=== PATIENT | female | born 1955 | race Caucasian/White ===

== ENCOUNTER 2021-10-22 01:44 | Day surgery (SDC) | payer OTHER, SELFPAY ==
[2021-10-11 14:14] VITALS: BMI 30.9
--- NOTE | 2021-10-21 13:44 | WPDANESEPPF ---
Anes - Initial Pre Proc Eval Procedure: Operation Date: 10/22/21 08:30 Proposed Procedures p Colonoscopy - Hussein Oneill MD <Santhosh Tian DO - Last Filed: 10/22/21 09:38> Date/Time: 10/21/21 13:44 <Santhosh Tian DO - Last Filed: 10/22/21 09:38> Surgeon: Hussein Oneill MD <Santhosh Tian DO - Last Filed: 10/22/21 09:38> Pre Op Diagnosis: anemia <Santhosh Tian DO - Last Filed: 10/22/21 09:38> Patient Data Age: 65 Gender: F Height: 1.52 m Weight: 72 kg <Santhosh Tian DO - Last Filed: 10/22/21 09:38> Allergies Allergy/AdvReac Type Severity Reaction Status Date / Time choline fenofibrate Allergy Unknown chest pains Verified 10/22/21 07:43 [Trilipix] simvastatin Allergy Unknown Muscle pain Verified 10/22/21 07:43 pravastatin AdvReac Severe muscle Verified 10/22/21 07:43 aches <Santhosh Tian DO - Last Filed: 10/22/21 09:38> Home Medications Medication Instructions Recorded Confirmed Type albuterol sulfate 90 mcg/actuation 2 puff INHALATION .COMPLEX #8.5 gm 02/10/21 10/22/21 Rx aerosol inhaler budesonide-formoterol HFA 160 2 puff INHALATION Q12H #10.2 g 02/10/21 10/22/21 Rx mcg-4.5 mcg/actuation aerosol inhaler irbesartan 150 1 tablet PO DAILY #90 tablet 02/10/21 10/22/21 Rx mg-hydrochlorothiazide 12.5 mg tablet metformin 500 mg tablet,extended 1,000 mg PO BID PRN #360 tablet 02/10/21 10/22/21 Rx release 24 hr glimepiride 2 mg tablet See Rx Instructions .ROUTE 05/31/21 10/22/21 Rx .COMPLEX #90 tablet magnesium 250 mg tablet 250 mg PO DAILY tablet 08/24/21 10/22/21 History ezetimibe 10 mg tablet 10 mg PO DAILY #30 tablet 10/06/21 10/22/21 Rx Aspirin Low Dose 81 mg PO DAILY 10/11/21 10/22/21 History omeprazole 20 mg PO DAILY 10/11/21 10/22/21 History <Santhosh Tian DO - Last Filed: 10/22/21 09:38> Patient hx anesthesia problems: none <Rony Ascencio CRNA - Last Filed: 10/22/21 08:11> Family hx anesthesia problems: none <Rony Ascencio CRNA - Last Filed: 10/22/21 08:11> Results Review: All pre-operative results and documents have been reviewed as part of the pre-operative evaluation. <Santhosh Tian DO - Last Filed: 10/22/21 09:38> [facility] Past Medical History Medical History: Medical History (Updated 10/22/21 @ 08:02 by Hussein Oneill MD) DM w/o complication type II, uncontrolled Essential (primary) hypertension Moderate persistent asthma, uncomplicated Type 2 diabetes mellitus without complications <Santhosh Tian DO - Last Filed: 10/22/21 09:38> Surgical History Surgical History: Surgical History H/O: hysterectomy <Santhosh Tian DO - Last Filed: 10/22/21 09:38> Family History Family History: Family History Mother Diabetes mellitus Other No family history of cardiovascular disease No family history of hypertension <Santhosh Tian DO - Last Filed: 10/22/21 09:38> Social History Social History: Social History Alcohol intake: current Living arrangements: with family Spiritual care concerns: No <Santhosh Tian DO - Last Filed: 10/22/21 09:38> Anes - Eval Final PreProcedure Day of Procedure 10/21/21 13:44 <Santhosh Tian DO - Last Filed: 10/22/21 09:38> Patient weight: obese <Santhosh Tian DO - Last Filed: 10/22/21 09:38> Heart: regular rate and rhythm <Santhosh Tian DO - Last Filed: 10/22/21 09:38> Lungs: clear to auscultation and normal air movement <Santhosh Tian DO - Last Filed: 10/22/21 09:38> Airway: Mallampati scale class II <Santhosh Tian DO - Last Filed: 10/22/21 09:38> Neurological: alert and oriented <St
[2021-10-22 07:37] VITALS: BP 155/78; PULSE 108; RESP 16; TEMP 36.4; O2SAT 98; BMI 29.9
[2021-10-22] MEDS: LACTATED RINGERS 1,000 ML 150 ML IV CONT (07:57)
[2021-10-22 07:59] LABS: Glucose Point of Care 183 mg/dl (65-105)
--- NOTE | 2021-10-22 08:00 | WPDGICN ---
Assessment and Plan Assessment and plan (1) Anemia, unspecified: Code(s): D64.9 - Anemia, unspecified Status: Acute Assessment and Plan: Mild normochromic normocytic anemia reported. May be nonspecific. Plan is for colonoscopy to exclude organic disease. (2) Encounter for screening colonoscopy: Code(s): Z12.11 - Encounter for screening for malignant neoplasm of colon Status: Acute Assessment and Plan: Screening colonoscopy advised because of patient's age. She has never had a previous colonoscopy. Family history suggest may be years sister had had colon polyps. GI Consult Note Consult date/time: 10/22/21 08:00 HPI: Jayashree Cordero is a 65 year old female Presents for a screening colonoscopy. Patient reports recently found to have a mild normochromic normocytic anemia. She has had no evidence for bleeding. No nose bleeds no blood in her urine no bruising. No blood in her stools reported. Patient denies abdominal pain. She states her weight appetite are normal. She has never had a previous colonoscopy. Family history is noncontributory. Review of Systems Review of Systems: All systems reviewed & are unremarkable except as noted in HPI and below PMFSH Past Medical History Medical History (Updated 10/22/21 @ 08:02 by Hussein Oneill MD) DM w/o complication type II, uncontrolled Essential (primary) hypertension Moderate persistent asthma, uncomplicated Type 2 diabetes mellitus without complications Surgical History Surgical History H/O: hysterectomy Family History Family History Mother Diabetes mellitus Other No family history of cardiovascular disease No family history of hypertension Social History Social History Alcohol intake: current Living arrangements: with family Spiritual care concerns: No Meds Home Medications and Allergies Home Medications Medication Instructions Recorded Confirmed Type albuterol sulfate 90 mcg/actuation 2 puff INHALATION .COMPLEX #8.5 gm 02/10/21 10/22/21 Rx aerosol inhaler budesonide-formoterol HFA 160 2 puff INHALATION Q12H #10.2 g 02/10/21 10/22/21 Rx mcg-4.5 mcg/actuation aerosol inhaler irbesartan 150 1 tablet PO DAILY #90 tablet 02/10/21 10/22/21 Rx mg-hydrochlorothiazide 12.5 mg tablet metformin 500 mg tablet,extended 1,000 mg PO BID PRN #360 tablet 02/10/21 10/22/21 Rx release 24 hr glimepiride 2 mg tablet See Rx Instructions .ROUTE 05/31/21 10/22/21 Rx .COMPLEX #90 tablet magnesium 250 mg tablet 250 mg PO DAILY tablet 08/24/21 10/22/21 History ezetimibe 10 mg tablet 10 mg PO DAILY #30 tablet 10/06/21 10/22/21 Rx Aspirin Low Dose 81 mg PO DAILY 10/11/21 10/22/21 History omeprazole 20 mg PO DAILY 10/11/21 10/22/21 History Allergies Allergy/AdvReac Type Severity Reaction Status Date / Time choline fenofibrate Allergy Unknown chest pains Verified 10/22/21 07:43 [Trilipix] simvastatin Allergy Unknown Muscle pain Verified 10/22/21 07:43 pravastatin AdvReac Severe muscle Verified 10/22/21 07:43 aches Vital Signs Vital Signs - 24 hr 10/22/21 07:37 Temperature 97.5 F L Pulse Rate 108 H Respiratory Rate 16 Blood Pressure 155/78 H Pulse Oximetry 98 Exam Narrative: Physical exam reveals patient to be alert. Vital signs stable. HEENT exam is unremarkable. Patient is anicteric. Lungs are clear to auscultation and percussion. Heart is without murmur or extra sounds. Abdomen bowel sounds are present soft nontender with no hepatosplenomegaly. Digital external rectal exam is normal.
[2021-10-22 08:57] VITALS: BP 100/61; PULSE 72; RESP 22; O2SAT 98
[2021-10-22 09:07] VITALS: BP 114/69; PULSE 73; RESP 22; O2SAT 98
[2021-10-22 09:17] VITALS: BP 130/88; PULSE 85; RESP 12; O2SAT 98
== END 2021-10-22 09:30 | disposition home or self-care (01) ==
PROVIDERS: PCP Family Medicine; Visit Provider Internal Medicine Gastroenterology
PROC: 0DJD8ZZ Inspection of Lower Intestinal Tract, Via Natural or Artificial Opening Endoscopic (ICD-10-PCS; CPT 45378; principal; 2021-10-22 08:30)
DX: Z12.11 Encounter for screening for malignant neoplasm of colon (principal); K64.8 Other hemorrhoids; D64.9 Anemia, unspecified; I10 Essential (primary) hypertension; E11.9 Type 2 diabetes mellitus without complications; J45.30 Mild persistent asthma, uncomplicated; Z79.51 Long term (current) use of inhaled steroids; Z79.84 Long term (current) use of oral hypoglycemic drugs
CPT/HCPCS: 45378; 82948; J2001; J2704; J7120

== ENCOUNTER → 2021-12-11 07:56 | Outpatient (CLI) | payer OTHER, SELFPAY ==
--- NOTE | ~2021-12-11 | MM_ITS ---
EXAMINATION: MM screening [facility] BI w [facility] HISTORY: Screening mammogram TECHNIQUE: Craniocaudal and mediolateral oblique 3-D tomosynthesis images were obtained and synthetic 2-D images were generated. CAD analysis was submitted and interpreted. COMPARISON: 07/06/2019, 12/27/2016 BREAST PARENCHYMAL COMPOSITION: There are scattered areas of fibroglandular density. FINDINGS: There is no evidence of suspicious mass, calcification, or architectural distortion to sugg est malignancy in either breast. There has been no suspicious interval change. IMPRESSION: 1. No mammographic evidence of malignancy. 2. Recommend routine screening mammography in one year. BI-RADS Category 1: Negative Reviewed, dictated and finalized at location A.
--- NOTE | ~2021-12-11 | DEXA_ITS ---
Bone Density Report Name: LONA DIXON Age: 66 Sex: Female Ethnicity: White Date of : 1955 Indication: postmenopausal; screening for osteoporosis; asthma or emphysema; hysterectomy; Referring Provider: EDGARD OLIVARES Study: Bone densitometry was performed. Exam Date: December 11, 2021 Accession number: [id number] Bone Density: Region BMD T-score Z-score Classification AP Spine (L1-L4) 0.924 -1.1 0.6 Osteopenia Femoral Neck (Left) 0.700 -1.3 0.2 Osteopenia Total Hip (Left) 0.879 -0.5 0.7 Normal Femoral Neck (Right) 0.684 -1.5 0.0 Osteopenia Total Hip (Right) 0.915 -0.2 1.0 Normal Total Hip Mean 0.897 -0.4 0.9 Normal World Health Organization criteria for BMD impression classify patients as: Normal (T-score at or above -1.0), Osteopenia (T-score between -1.0 and -2.5), or Osteoporosis (T-score at or below -2.5). 10-year Fracture Risk(1): Major Osteoporotic Fracture 8.7% Hip Fracture 0.9% Reported Risk Factors: [place] (), Neck BMD=0.684, BMI=29.5 (1) FRAX(R) Version 3.08. Fracture probability calculated for an untreated patient. Fracture probability may be lower if the patient has received treatment. Previous Exams: Region Exam Age BMD T-score BMD Change BMD Change Date g/cm2 vs Baseline vs Previous AP Spine(L1-L4) 12/11/2021 66 0.924 -1.1 -0.068* -0.029* 07/04/2015 59 0.953 -0.9 -0.039* -0.027* 08/25/2012 56 0.980 -0.6 -0.013 0.000 04/16/2010 54 0.980 -0.6 -0.013 -0.013 09/26/2008 52 0.992 -0.5 Total Hip(Left) 12/11/2021 66 0.879 -0.5 -0.055* -0.021 07/04/2015 59 0.900 -0.3 -0.033* -0.035* 08/25/2012 56 0.935 -0.1 0.002 0.037* 04/16/2010 54 0.898 -0.4 -0.035* -0.035* 09/26/2008 52 0.933 -0.1 Total Hip(Right) 12/11/2021 66 0.915 -0.2 -0.015 -0.011 07/04/2015 59 0.926 -0.1 -0.004 -0.054* 08/25/2012 56 0.980 0.3 0.050* 0.082* 04/16/2010 54 0.897 -0.4 -0.033* -0.033* 09/26/2008 52 0.930 -0.1 *Denotes significance at 95% confidence level, LSC for AP Spine = 0.022 g/cm2, LSC for Total Hip = 0.027 g/cm2 Clinical Information Provided by Patient: Has used the following medications: Vitamin D, Calcium Has the following medical conditions: Asthma or Emphysema, Hysterectomy Patient maximum height was 61
== END ==
PROVIDERS: PCP Family Medicine; Visit Provider Family Medicine
DX: Z12.31 Encounter for screening mammogram for malignant neoplasm of breast (principal); Z13.820 Encounter for screening for osteoporosis; Z78.0 Asymptomatic menopausal state; M85.88 Other specified disorders of bone density and structure, other site; M85.852 Other specified disorders of bone density and structure, left thigh; M85.851 Other specified disorders of bone density and structure, right thigh
CPT/HCPCS: 77063; 77067; 77080

== ENCOUNTER 2022-06-29 09:31 | Outpatient (CLI) | payer OTHER, SELFPAY ==
--- NOTE | 2022-06-29 09:52 | EST_ITS ---
Patient Info Name: Jayashree Cordero Age: 66 years : 1955 Gender: Female Ht: 61 in Wt: 160 lbs BSA: 1.79 m2 HR: 78 bpm BP: 154 / 83 mmHg Heart Rhythm: Sinus Rhythm Technical Quality: Good Exam Date: 06/29/2022 10:09 AM Exam Location: [facility] Patient Status: Outpatient Admit Date: 06/29/2022 Staff Ordering Physician: He Pedraza PA-C Safety Officer: Colette Green RDCS Attending Provider: DR. BOWIE Referring Physician: Keila OBRIEN; Exam Type: CA stress echo Study Info Indications R07.89 - Other chest pain Treadmill exercise stress echocardiogram is performed. Summary 1. 1. Negative Jax exercise stress test for ischemic ST changes by ECG criteria. 2. 2. Reduced functional capacity, achieving 4.7 METs of workload. 3. 3. Baseline hypertension. 4. 4. Rapid HR response to exercise. 5. 5. Appropriate HR recovery at 1 minute post exercise. 6. 6. Negative stress echocardiogram for ischemia by wall motion analysis. 7. 7. Patient informed of the above results. Stress Echo Findings Left Ventricle Appropriate increase in LV endocardial thickening with systole. Appropriate augmentation of contractility with systole. No wall motion abnormality. Left Ventricle Normal LV systolic function, no wall motion abnormality. Protocol: Jax Stress ECG Details Stage: REST Duration (min): 2 min : 25 sec Speed (mph): 0.0 Grade (%): 0 HR (bpm): 79 SBP (mmHg): 154 DBP (mmHg): 83 METS: --- Stage: REST Duration (min): 27 min : 46 sec Speed (mph): 0.0 Grade (%): 0 HR (bpm): 86 SBP (mmHg): 154 DBP (mmHg): 83 METS: --- Stage: STAGE 1 Duration (min): 1 min : 0 sec Speed (mph): 1.7 Grade (%): 10 HR (bpm): 118 SBP (mmHg): 154 DBP (mmHg): 83 METS: --- Stage: STAGE 1 Duration (min): 2 min : 0 sec Speed (mph): 1.7 Grade (%): 10 HR (bpm): 142 SBP (mmHg): 154 DBP (mmHg): 83 METS: --- Stage: STAGE 1 Duration (min): 3 min : 0 sec Speed (mph): 1.7 Grade (%): 10 HR (bpm): 150 SBP (mmHg): 198 DBP (mmHg): 86 METS: --- Stage: STAGE 2 Duration (min): 0 min : 8 sec Speed (mph): 0.0 Grade (%): 0 HR (bpm): 150 SBP (mmHg): 198 DBP (mmHg): 86 METS: --- Stage: RECOVERY Duration (min): 0 min : 51 sec Speed (mph): 0.0 Grade (%): 0 HR (bpm): 129 SBP (mmHg): 198 DBP (mmHg): 86 METS: --- Stage: RECOVERY Duration (min): 1 min : 51 sec Speed (mph): 0.0 Grade (%): 0 HR (bpm): 100 SBP (mmHg): 198 DBP (mmHg): 86 METS: --- Stage: RECOVERY Duration (min): 2 min : 51 sec Speed (mph): 0.0 Grade (%): 0 HR (bpm): 95 SBP (mmHg): 198 DBP (mmHg): 86 METS: --- Stage: RECOVERY Duration (min): 3 min : 51 sec Speed (mph): 0.0 Grade (%): 0 HR (bpm): 83 SBP (mmHg): 198 DBP (mmHg): 86 METS: --- Stage: RECOVERY Duration (min): 4 min : 5
== END 2022-06-29 09:32 | disposition home or self-care (01) ==
PROVIDERS: PCP Emergency Medicine; Visit Provider Physician Assistant
DX: R07.9 Chest pain, unspecified (principal); E11.69 Type 2 diabetes mellitus with other specified complication; E78.2 Mixed hyperlipidemia
CPT/HCPCS: 93351

== ENCOUNTER → 2023-05-12 15:56 | Outpatient (CLI) | payer OTHER, SELFPAY ==
--- NOTE | ~2023-05-12 | XR_ITS ---
EXAM: XR knee RT 3V DATE: 05/12/2023 16:21 HISTORY: M79.669 - Pain in unspecified lower leg . COMPARISON: None available. FINDINGS: Normal mineralization. No fracture or dislocation. No lytic or blastic lesion. Mild tricom partmental osteophytosis. Quadriceps enthesopathy. No erosion or periosteal change. Vascular calcific ations. IMPRESSION: Mild tricompartmental right knee osteoarthritis. Reviewed, dictated and finalized at location K.
== END ==
PROVIDERS: PCP Emergency Medicine; Visit Provider Nurse Practitioner Family
DX: M79.669 Pain in unspecified lower leg (principal); M17.11 Unilateral primary osteoarthritis, right knee
CPT/HCPCS: 73562

== ENCOUNTER 2023-06-09 01:11 | Day surgery (SDC) | payer OTHER, SELFPAY ==
[2023-05-24 13:14] VITALS: BMI 26.9
[2023-06-09 08:45] VITALS: BP 139/72; PULSE 84; RESP 20; TEMP 36.3; O2SAT 100; BMI 27.1
[2023-06-09] MEDS: LACTATED RINGERS 1,000 ML 150 ML IV CONT (08:47)
[2023-06-09 09:03] LABS: Glucose Point of Care 118 mg/dl (65-105)
--- NOTE | 2023-06-09 09:03 | WPDANESEPPF ---
Anes - Initial Pre Proc Eval Procedure: Operation Date: 06/09/23 09:30 Proposed Procedures p Esophagogastroduodenoscopy - Hussein Oneill MD Date/Time: 06/09/23 09:03 Surgeon: Hussein Oneill MD Pre Op Diagnosis: abnormal weightloss, epigastric pain Patient Data Age: 67 Gender: F Height: 1.55 m Weight: 65.2 kg Last Vital Signs Temp 97.4 F L 06/09/23 08:45 Pulse 84 06/09/23 08:45 Resp 20 06/09/23 08:45 BP 139/72 06/09/23 08:45 Pulse Ox 100 06/09/23 08:45 O2 Del Method Room Air 06/09/23 08:45 Allergies Allergy/AdvReac Type Severity Reaction Status Date / Time choline fenofibrate Allergy Unknown chest pains Verified 06/09/23 08:43 [Trilipix] simvastatin Allergy Unknown Muscle pain Verified 06/09/23 08:43 pravastatin AdvReac Severe muscle Verified 06/09/23 08:43 aches Home Medications Medication Instructions Recorded Confirmed Type Aspirin Low Dose 81 mg PO DAILY 10/11/21 06/09/23 History albuterol sulfate 90 mcg/actuation See Rx Instructions .Route 12/30/22 06/09/23 Rx aerosol inhaler .COMPLEX #8.5 grams omeprazole 40 mg capsule,delayed 40 mg PO DAILY #90 caps 02/01/23 06/09/23 Rx release metformin 500 mg tablet,extended See Rx Instructions .Route 03/07/23 06/09/23 Rx release 24 hr .COMPLEX #360 tabs empagliflozin 25 mg tablet 25 mg PO QAM #90 tabs 04/14/23 06/09/23 Rx (Jardiance) ezetimibe 10 mg tablet See Rx Instructions .Route 04/14/23 06/09/23 Rx .COMPLEX #90 tabs glimepiride 2 mg tablet See Rx Instructions .Route 04/14/23 06/09/23 Rx .COMPLEX #90 tabs irbesartan 150 See Rx Instructions .Route 05/09/23 06/09/23 Rx mg-hydrochlorothiazide 12.5 mg .COMPLEX #90 tabs tablet Cane #1 ea 05/19/23 06/09/23 Rx diclofenac potassium 25 mg capsule 25 mg PO BID #60 caps 05/19/23 06/09/23 Rx budesonide-formoterol HFA 160 2 puff inhalation Q12H PRN 05/24/23 06/09/23 History mcg-4.5 mcg/actuation aerosol Shortness Of Breath Or Wheezing inhaler (Symbicort) Laboratory Tests 06/09/23 08:59 POC Capillary Glucose 118 H mg/dl (65-105) Patient hx anesthesia problems: none Family hx anesthesia problems: none Results Review: All pre-operative results and documents have been reviewed as part of the pre-operative evaluation. [facility] Past Medical History Medical History DM w/o complication type II, uncontrolled Essential (primary) hypertension Moderate persistent asthma, uncomplicated Type 2 diabetes mellitus without complications Surgical History Surgical History H/O: hysterectomy Family History Family History Mother Diabetes mellitus Other No family history of cardiovascular disease No family history of hypertension Social History Social History Smoking status: Never smoker Alcohol intake: current Substance use type: does not use Lack of Transportation: No Lack of Food: Never True Current Housing: I Have Housing Concerned About Future Housing: No Difficulty Paying Gas/Electric Bills: No Difficulty Paying for Meds: No Currently Unemployed: No Education: High School Diploma/GED Difficulty w/ Childcare or Family Care: No Living arrangements: other Additional living arrangements comments: with sp Spiritual care concerns: No Anes - Eval Final PreProcedure Day of Procedure 06/09/23 09:03 Patient weight: normal Heart: regular rate and rhythm Lungs: clear to auscultation Airway: Mallampati scale class II Neurological: alert and oriented Last oral intake: >/= 8 hours ASA classification: III Emergent: no Anesthetic plan: proceed Anesthesia type and monitoring: general GIVS and standard monitoring Results Review: All pre-operative results and documents have been reviewed
--- NOTE | 2023-06-09 09:14 | PM.HPGS ---
History of Present Illness History of Present Illness Consent: Risks, benefits, and alternatives have been discussed and questions answered. Patient agrees to proceed with procedure. Chief complaint: abnormal weightloss, epigastric pain Narrative: Jayashree Cordero is a 67 year old female Presents for EGD. Patient complains rather vague mid abdominal discomfort that she describes as an intermittent flutter. This is not related to diet or activity. It occurs briefly and then spontaneously will go away. No specific precipitating or aggravating features are noted. She states occasionally it is sharp in nature. Patient reports perhaps a 10lb weight loss over the last month. Family history is noncontributory. Patient is undergoing some test under the direction of her primary care service. EGD has been requested. Patient denies any dysphagia. She has had no bleeding. Review of Systems Review of Systems: Review of systems noncontributory. [facility] Past Medical History Medical History DM w/o complication type II, uncontrolled Essential (primary) hypertension Moderate persistent asthma, uncomplicated Type 2 diabetes mellitus without complications Surgical History Surgical History H/O: hysterectomy Family History Family History Mother Diabetes mellitus Other No family history of cardiovascular disease No family history of hypertension Social History Social History Smoking status: Never smoker Alcohol intake: current Substance use type: does not use Lack of Transportation: No Lack of Food: Never True Current Housing: I Have Housing Concerned About Future Housing: No Difficulty Paying Gas/Electric Bills: No Difficulty Paying for Meds: No Currently Unemployed: No Education: High School Diploma/GED Difficulty w/ Childcare or Family Care: No Living arrangements: other Additional living arrangements comments: with sp Spiritual care concerns: No Meds Home Medications and Allergies Home Medications Medication Instructions Recorded Confirmed Type Aspirin Low Dose 81 mg PO DAILY 10/11/21 06/09/23 History albuterol sulfate 90 mcg/actuation See Rx Instructions .Route 12/30/22 06/09/23 Rx aerosol inhaler .COMPLEX #8.5 grams omeprazole 40 mg capsule,delayed 40 mg PO DAILY #90 caps 02/01/23 06/09/23 Rx release metformin 500 mg tablet,extended See Rx Instructions .Route 03/07/23 06/09/23 Rx release 24 hr .COMPLEX #360 tabs empagliflozin 25 mg tablet 25 mg PO QAM #90 tabs 04/14/23 06/09/23 Rx (Jardiance) ezetimibe 10 mg tablet See Rx Instructions .Route 04/14/23 06/09/23 Rx .COMPLEX #90 tabs glimepiride 2 mg tablet See Rx Instructions .Route 04/14/23 06/09/23 Rx .COMPLEX #90 tabs irbesartan 150 See Rx Instructions .Route 05/09/23 06/09/23 Rx mg-hydrochlorothiazide 12.5 mg .COMPLEX #90 tabs tablet Cane #1 ea 05/19/23 06/09/23 Rx diclofenac potassium 25 mg capsule 25 mg PO BID #60 caps 05/19/23 06/09/23 Rx budesonide-formoterol HFA 160 2 puff inhalation Q12H PRN 05/24/23 06/09/23 History mcg-4.5 mcg/actuation aerosol Shortness Of Breath Or Wheezing inhaler (Symbicort) Allergies Allergy/AdvReac Type Severity Reaction Status Date / Time choline fenofibrate Allergy Unknown chest pains Verified 06/09/23 08:43 [Trilipix] simvastatin Allergy Unknown Muscle pain Verified 06/09/23 08:43 pravastatin AdvReac Severe muscle Verified 06/09/23 08:43 aches Vital Signs Vital Signs - 24 hr 06/09/23 08:45 Temperature 97.4 F L Pulse Rate 84 Respiratory Rate 20 Blood Pressure 139/72 Pulse Oximetry 100 Oxygen Delivery Room Air Exam Narrative: Physical exam reveals patient to be alert. Vital signs stable. HEENT exam i
[2023-06-09 09:40] VITALS: BP 116/68; PULSE 71; RESP 20; O2SAT 99
[2023-06-09 09:50] VITALS: BP 119/69; PULSE 71; RESP 20; O2SAT 99
== END 2023-06-09 10:08 | disposition home or self-care (01) ==
PROVIDERS: PCP Emergency Medicine; Visit Provider Internal Medicine Gastroenterology
PROC: 0DJ08ZZ Inspection of Upper Intestinal Tract, Via Natural or Artificial Opening Endoscopic (ICD-10-PCS; CPT 43235; principal; 2023-06-09 09:30)
DX: R10.84 Generalized abdominal pain (principal); E11.9 Type 2 diabetes mellitus without complications; I10 Essential (primary) hypertension; J45.30 Mild persistent asthma, uncomplicated; Z79.84 Long term (current) use of oral hypoglycemic drugs; Z79.51 Long term (current) use of inhaled steroids; Z79.82 Long term (current) use of aspirin
CPT/HCPCS: 43239; 82948; 87081; J7120

== ENCOUNTER → 2023-06-13 09:13 | Outpatient (CLI) | payer OTHER, SELFPAY ==
--- NOTE | ~2023-06-13 | US_ITS ---
Abdominal Sonogram: Real-time sonographic imaging of the abdomen was performed. Clinical History: Abnormal weight loss Findings: The liver appears normal with no evidence of mass lesion or bile duct dilatation. Main por vita vein demonstrates normal direction of flow. The spleen is normal in size without evidence of foca l lesion. The gallbladder is partially distended, without gallstones present. No definite gallbladde r wall thickening. The common bile duct measures 4 mm. The visualized pancreas, aorta, and IVC are u nremarkable. The right kidney measures 8.6 cm in length and the left kidney measures 8.2 cm. There is no hydronephrosis or renal calculus. Impression: Cholelithiasis. Reviewed, dictated and finalized at location . Impression: Cholelithiasis.
== END ==
PROVIDERS: PCP Emergency Medicine; Visit Provider Emergency Medicine
DX: K80.20 Calculus of gallbladder without cholecystitis without obstruction (principal); R63.4 Abnormal weight loss
CPT/HCPCS: 76700

== ENCOUNTER → 2023-06-28 10:55 | Outpatient (CLI) | payer OTHER, SELFPAY ==
--- NOTE | ~2023-06-28 | MM_ITS ---
EXAMINATION: MM screening [facility] BI w [facility] HISTORY: Screening mammogram TECHNIQUE: Craniocaudal and mediolateral oblique 3-D tomosynthesis images were obtained and synthetic 2-D images were generated. CAD analysis was submitted and interpreted. COMPARISON: 12/11/2021, 07/06/2019, 12/27/2016 bilateral screening mammogram examinations BREAST PARENCHYMAL COMPOSITION: There are scattered areas of fibroglandular density. FINDINGS: There are scattered bilateral benign calcifications. There is no evidence of suspicious mas s, calcification, or architectural distortion to suggest malignancy in either breast. There has been no suspicious interval change. IMPRESSION: 1. No mammographic evidence of malignancy. 2. Recommend routine screening mammography in one year. BI-RADS Category 1: Negative Reviewed, dictated and finalized at location A.
== END ==
PROVIDERS: PCP Emergency Medicine; Visit Provider Physician Assistant
DX: Z12.31 Encounter for screening mammogram for malignant neoplasm of breast (principal)
CPT/HCPCS: 77063; 77067

== ENCOUNTER 2023-07-21 09:32 | Outpatient (CLI) | payer OTHER, SELFPAY ==
--- NOTE | ~2023-07-21 | US_ITS ---
US venous doppler LE RT DATE: 07/21/2023 10:29 INDICATION: Right leg pain TECHNIQUE: Real-time and color imaging and Doppler analysis of the veins of the right lower extremity COMPARISON: None FINDINGS: There is spontaneous and phasic flow and normal augmentation and color flow signal and norm al compression of the deep veins of the right lower extremity. The right greater saphenous vein is pa tent. IMPRESSION: No evidence of deep venous thrombosis of right lower extremity Reviewed, dictated and finalized at Location A. Reviewed, dictated and finalized at location B.
== END 2023-07-21 09:33 | disposition home or self-care (01) ==
PROVIDERS: PCP Emergency Medicine; Visit Provider Physician Assistant
DX: M79.604 Pain in right leg (principal)
CPT/HCPCS: 93971

== ENCOUNTER → 2023-08-11 08:55 | Outpatient (CLI) | payer OTHER, SELFPAY ==
--- NOTE | ~2023-08-11 | MR_ITS ---
MRI of the right knee Clinical history: Pain Technique: Coronal proton density and proton density-weighted images, sagittal proton-density and T2 fat-sat images, and axial proton-density fat-saturated images were acquired. Findings: Anterior and posterior cruciate ligaments are intact. Medial collateral ligament and the la teral collateral again complex are intact. Popliteus tendon is intact. Radial tear at the posterior root of the medial meniscus is present. No lateral meniscal tear seen. There is high-grade chondromalacia of the medial femoral condyle towards the medial joint line. Artic ular cartilage in the lateral compartment is relatively well-preserved. Patellofemoral articular cart ilage is also relatively well-preserved, with minimal thickening along the medial patellar facet. Bon e marrow signals are unremarkable. Extensor mechanism is intact. Minimal joint effusion present. No Amaya's cyst. Impression: Radial tear at the posterior root of the medial meniscus. 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 Reviewed, dictated and finalized at location . [employer] Impression: Radial tear at the posterior root of the medial meniscus. 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
== END ==
PROVIDERS: PCP Emergency Medicine; Visit Provider Physician Assistant
DX: M79.604 Pain in right leg (principal); S83.241A Other tear of medial meniscus, current injury, right knee, initial encounter; M94.261 Chondromalacia, right knee
CPT/HCPCS: 73721

== ENCOUNTER 2024-12-17 09:06 | Outpatient (CLI) | payer MEDICARE, SELFPAY ==
[2024-12-17 14:16] LABS: Alanine Aminotransferase 39 U/L (6-35); Albumin Level 4.7 g/dL (3.5-5.1); Alkaline Phosphatase 142 U/L (38-126); Anion Gap 11 mmol/L (4-12); Aspartate Amino Transferase 48 U/L (14-36); Bilirubin,Total 0.5 mg/dL (0.2-1.3); Blood Urea Nitrogen 30 mg/dL (7-17); Calcium 9.9 mg/dL (8.4-10.2); Carbon Dioxide 27 mmol/L (22-30); Chloride 99 mmol/L (98-107); Estimated Glomerular Filt Rate 54; Glucose 156 mg/dL (65-110); Potassium 4.6 mmol/L (3.4-5.0); Sodium 137 mmol/L (137-145)
[2024-12-17 15:05] LABS: Hemoglobin A1C 8.5 % (<5.7)
== END 2024-12-17 09:07 | disposition home or self-care (01) ==
PROVIDERS: PCP Nurse Practitioner Family; Visit Provider Nurse Practitioner Family
DX: E11.65 Type 2 diabetes mellitus with hyperglycemia (principal)
CPT/HCPCS: 36415; 80053; 83036

== ENCOUNTER 2025-03-24 10:06 | Outpatient (CLI) | payer MEDICARE, SELFPAY ==
[2025-03-24 12:45] LABS: Basophils Absolute Auto 0.1 K/mm3 (0.0-0.1); Basophils Percent Auto 0.9 % (0.2-1.2); Eosinophils Absolute Auto 0.1 K/mm3 (0-0.3); Eosinophils Percent Auto 2.4 % (0-4.4); Hematocrit 39.6 % (37.0-47.0); Hemoglobin 12.6 g/dL (12.0-15.0); Immature Granulocyte Absolute 0.02 K/mm3 (0.00-0.031); Immature Granulocyte Percent A 0.3 % (0-0.5); Lymphocytes Absolute Auto 1.43 K/mm3 (0.9-3.2); Lymphocytes Percent Auto 24.7 % (18.3-44.2); Mean Corpuscular HGB Conc 31.8 g/dl (32-36); Mean Corpuscular Hemoglobin 30.5 pg (26-34); Mean Corpuscular Volume 95.9 fl (80-100); Mean Platelet Volume 9.9 fl (7.4-10.4); Monocytes Absolute Auto 0.6 K/mm3 (0.1-0.6); Monocytes Percent Auto 10.9 % (2.6-8.5); Neutrophils Absolute Auto 3.5 K/mm3 (1.3-6.7); Neutrophils Percent Auto 60.8 % (45.5-73.1); Platelet Count Result 303 k/mm3 (150-375); Red Blood Count 4.13 M/mm3 (4.2-5.4); White Blood Count 5.8 K/mm3 (4.5-10.0)
[2025-03-24 12:56] LABS: Alanine Aminotransferase 40 U/L (6-35); Albumin Level 4.8 g/dL (3.5-5.1); Alkaline Phosphatase 97 U/L (38-126); Anion Gap 10 mmol/L (4-12); Aspartate Amino Transferase 55 U/L (14-36); Bilirubin,Total 0.4 mg/dL (0.2-1.3); Blood Urea Nitrogen 31 mg/dL (7-17); Calcium 10.4 mg/dL (8.4-10.2); Carbon Dioxide 27 mmol/L (22-30); Chloride 101 mmol/L (98-107); Cholesterol 210 mg/dL (0-200); Estimated Glomerular Filt Rate 55; Glucose 124 mg/dL (65-110); HDL Direct 62 mg/dL; Potassium 4.7 mmol/L (3.4-5.0); Sodium 138 mmol/L (137-145); Total Protein 8.6 g/dL (6.3-8.2); Triglycerides 111 mg/dL (<150)
[2025-03-24 13:10] LABS: Iron 81 ug/dL (37-170)
[2025-03-24 13:12] LABS: LDL Cholesterol Direct 80 mg/dL
[2025-03-24 13:28] LABS: Percent Iron Saturation 27 % (20-50)
[2025-03-24 16:49] LABS: Hemoglobin A1C 6.8 % (<5.7)
== END 2025-03-24 10:07 | disposition home or self-care (01) ==
LOC: ANHGOSHLAB 10:06
PROVIDERS: PCP Nurse Practitioner Family; Visit Provider Nurse Practitioner Family
DX: E11.65 Type 2 diabetes mellitus with hyperglycemia (principal)
CPT/HCPCS: 36415; 80053; 80061; 83036; 83540; 83550; 84443; 85025

== ENCOUNTER 2025-06-10 15:10 | Outpatient (CLI) | payer MEDICARE, SELFPAY ==
--- NOTE | ~2025-06-10 | MM_ITS ---
EXAMINATION: MM screening yany BI w edis HISTORY: Screening TECHNIQUE: Craniocaudal and mediolateral oblique 3-D tomosynthesis images were obtained and synthetic 2-D images were generated. CAD analysis was submitted and interpreted. COMPARISON: Comparison to multiple prior studies sequentially, with oldest reviewed study dated , 12/27/2016 BREAST PARENCHYMAL COMPOSITION: There are scattered areas of fibroglandular density. FINDINGS: There is no evidence of suspicious mass, calcification, or architectural distortion to suggest malignancy in either breast. IMPRESSION: 1. No mammographic evidence of malignancy. 2. Recommend routine screening mammography in one year. BI-RADS Category 1: Negative Reviewed, dictated and finalized at location B.
== END 2025-06-10 15:11 | disposition home or self-care (01) ==
LOC: MICIMG 15:10
PROVIDERS: PCP Nurse Practitioner Family; Visit Provider Nurse Practitioner Family
DX: Z12.31 Encounter for screening mammogram for malignant neoplasm of breast (principal)
CPT/HCPCS: 77063; 77067